=== PATIENT | male | born 1980 | race Caucasian/White ===

== ENCOUNTER 2022-05-10 03:53 | Emergency (ER) | payer MEDICAID, OTHER ==
[~2022-05-10] VITALS: Ht 188 cm; Wt 86.0 kg
[2022-05-10 05:19] LABS: Basophils # (auto) 0.1 10 ^3/uL (0-0.2); Basophils % (auto) 0.7 % (0.0-2.0); Eosinophils # (auto) 0.1 10 ^3/uL (0-0.8); Hemoglobin 15.8 g/dL (13.5-17.5); Lymphocytes # (auto) 1.7 10 ^3/uL (0.4-5.4); Lymphocytes % (auto) 17.6 % (10.0-50.0); Mean Corpuscular Hemoglobin 29.1 pg (28.0-32.0); Mean Corpuscular Hgb Conc. 33.7 g/dL (32.0-36.0); Mean Corpuscular Volume 86.4 fL (80.0-100.0); Monocytes # (auto) 0.9 10 ^3/uL (0-1.3); Monocytes % (auto) 9.3 % (0.0-12.0); Neutrophils # (auto) 6.9 10 ^3/uL (1.6-8.6); Neutrophils % (auto) 71.4 % (37.0-80.0); Red Blood Cells 5.44 10^6/uL (4.5-5.90); White Blood Cell 9.6 10^3/uL (4.4-10.8)
[2022-05-10 05:27] LABS: Albumin 3.9 g/dL (3.4-5.0)
[2022-05-10 05:29] LABS: BUN/Creatinine Ratio 12.7; Bilirubin, Total 0.8 mg/dL (0.2-1.0); Total Protein 7.7 g/dL (6.4-8.2)
[2022-05-10 05:42] LABS: Urine Bacteria NONE SEEN /hpf (None Seen); Urine Blood Negative /uL (Negative); Urine Mucus FEW (None Seen); Urine Specific Gravity 1.035 (1.001-1.035); Urine WBC 1 /hpf (0 - 3)
[2022-05-10] MEDS ORDERED: ONDA-144 PO (08:57)
[2022-05-10 09:00] VITALS: BP 98/49
== END 2022-05-10 09:30 | disposition home or self-care (01) ==
LOC: ER 03:53
DX: R11.2 Nausea with vomiting, unspecified (principal); R06.02 Shortness of breath
CPT/HCPCS: 36415; 74176; 80053; 81001; 83690; 85025

== ENCOUNTER 2022-05-21 03:09 | Emergency (ER) | payer MEDICAID ==
[~2022-05-21] VITALS: Ht 188 cm; Wt 85.0 kg
[~2022-05-21 03:09] MED LIST: ONDA-144 PO
[2022-05-21 04:12] LABS: Basophils # (auto) 0.1 10 ^3/uL (0-0.2); Basophils % (auto) 1.1 % (0.0-2.0); Eosinophils # (auto) 0.1 10 ^3/uL (0-0.8); Eosinophils % (auto) 1.6 % (0.0-7.0); Hematocrit 42.2 % (41.0-53.0); Hemoglobin 14.3 g/dL (13.5-17.5); Lymphocytes # (auto) 1.7 10 ^3/uL (0.4-5.4); Lymphocytes % (auto) 26.2 % (10.0-50.0); Mean Corpuscular Hemoglobin 29.7 pg (28.0-32.0); Mean Corpuscular Hgb Conc. 33.9 g/dL (32.0-36.0); Mean Corpuscular Volume 87.5 fL (80.0-100.0); Monocytes # (auto) 0.6 10 ^3/uL (0-1.3); Monocytes % (auto) 9.3 % (0.0-12.0); Neutrophils # (auto) 4.1 10 ^3/uL (1.6-8.6); Neutrophils % (auto) 61.8 % (37.0-80.0); Nucleated Red Blood Cells % 0.1 %; Red Blood Cells 4.82 10^6/uL (4.5-5.90); Red Cell Distribution Width 13.2 % (11.8-14.3); White Blood Cell 6.6 10^3/uL (4.4-10.8)
[2022-05-21 04:14] LABS: Urine Bacteria NONE SEEN /hpf (None Seen); Urine Blood Negative /uL (Negative); Urine Hyaline Cast FEW /lpf (0 - 2); Urine Mucus FEW (None Seen); Urine WBC 1 /hpf (0 - 3)
[2022-05-21 04:30] LABS: Calcium 8.5 mg/dL (8.5-10.1); Potassium 3.6 mmol/L (3.5-5.1)
[2022-05-21 04:35] LABS: BUN/Creatinine Ratio 17.4; Bilirubin, Total 1.5 mg/dL (0.2-1.0); Total Protein 7.1 g/dL (6.4-8.2)
[2022-05-21 08:36] VITALS: BP 113/56
== END 2022-05-21 10:31 | disposition home or self-care (01) ==
LOC: ER 03:09
DX: E80.6 Other disorders of bilirubin metabolism (principal); K82.9 Disease of gallbladder, unspecified; F41.9 Anxiety disorder, unspecified; F32.9 Major depressive disorder, single episode, unspecified; R51.9 Headache, unspecified
CPT/HCPCS: 36415; 80053; 81001; 85025